=== PATIENT | male | born 1930 | race Caucasian/White ===

== ENCOUNTER → 2016-11-14 | Day surgery (SDC) | payer MEDICARE ==
[~2016-11-14] VITALS: Ht 180.3 cm; Wt 91.2 kg
[~2016-11-14] MED LIST: *LABETALOL HCL 100 MG/20 ML VIAL PERIprocedural Use ONLY ONE; ACET1CAP18 PO; ACETAMINOPHEN 1000 MG/100 ML VIAL IV SCH; AMLO2.5T PO; ASPI1TAB69 PO; BUPIVACAINE/EPINEPHRINE 0.5% PF 30 ML VIAL INFIL ONE; COUM2TAB PO; COUM3TAB PO; COUM4TAB PO; DEXAMETHASONE SOD PHOS 4 MG/ML VIAL ONE; DO NOT ADM ANY ANTICOAGULANT DRUGS XX PRN; FINA5TAB2 PO; HYDROmorphone HCL PF 2 MG/ML VIAL ONE; INSULIN HUMAN REGULAR 1,000 UNITS/10 ML VIAL SQ PRN; LACTATED RINGER'S 1000 ML IV SCH; LISI-515 PO; MEDI220T PO; METO25TA3 PO; METOPROLOL TARTRATE 25 MG TAB PO PRN; MIDAZOLAM HCL 2 MG/2 ML VIAL ONE; MORPHINE SULFATE 4 MG/ML INJ IV PRN; MULTTAB67 PO; NEOSTIGMINE 3 MG/3 ML SYR IV ONE; OMEP20TA PO; ONDANSETRON HCL 4 MG/2 ML VIAL IV PRN; ONDANSETRON HCL 4 MG/2 ML VIAL IV PUSH SCH; ONDANSETRON HCL 4 MG/2 ML VIAL ONE; OSTETAB7 PO; PRAV40TA PO; PRAV40TA2 PO; PROPOFOL 200 MG/20 ML AMP IV ONE; SODIUM CHLORID 0.9% 500 ML IV SCH; SODIUM CHLORIDE 5 ML FLUSH BID IVF SCH; SODIUM CHLORIDE 5 ML FLUSH PRN IVF; VANCOMYCIN 1,000 MG/NS 250ML (for <70 kg) IV SCH; ZINC50TA2 PO; ePHEDrine/NS 50 MG/5 ML SYR IV ONE; fentaNYL CITRATE 250 MCG/5 ML AMP ONE; oxyCODONE/ACETAMINOPHEN 5 MG/325 MG TAB PO PRN
[2016-11-14 09:09] VITALS: BP 157/114; PULSE 106; RESP 16; TEMP 97.9; O2SAT 99
[2016-11-14 10:20] LABS: INTERNATIONAL NORMALIZED RATIO 1.1 RATIO; PROTHROMBIN TIME - PATIENT 12.7 SEC (9.8-11.6)
[2016-11-14] MEDS: metroNIDAZOLE 500 MG INJ 100 ML IV SCH ×2 (11:23→11:25)
[2016-11-14 15:45] VITALS: BP 126/94; PULSE 100; RESP 17; TEMP 97.4; O2SAT 96
--- NOTE | 2016-11-22 07:51 | MP ---
cc: MAGNO KELLEY DATE OF 1930 DATE OF OPERATION 11/14/2016 PREOPERATIVE DIAGNOSIS Left inguinal hernia. POSTOPERATIVE DIAGNOSIS Left inguinal hernia. PROCEDURE Laparoscopic repair of left inguinal hernia with 12 x 15 UltraPro mesh. TEPP repair SURGEON Magno Kelley MD ANESTHESIA General endotracheal anesthesia. ESTIMATED BLOOD LOSS Scant. FINDINGS Indirect inguinal hernia. SPECIMENS None. COMPLICATIONS None. OPERATION The patient was brought to the operating room and placed on operating table in supine position, bilateral sequential inflation device placed on lower extremities, general anesthesia instituted, Rubio catheter placed, antibiotics initiated. The abdomen was prepped and draped sterilely, the infraumbilical region anesthetized with 0.25% Marcaine with epinephrine. A skin incision was made extending to the left of the umbilicus. The subcutaneous tissue was dissected down to the anterior rectus sheath. The anterior rectus sheath was incised. The rectus muscle was retracted laterally. The preperitoneal space was dissected first with blunt finger dissection followed by balloon dissection. The self-retaining balloon trocar was then placed. CO2 was insufflated into the preperitoneal space to a pressure of 12 mmHg. Two 5-mm ports were placed in the midline infraumbilically. Attention was then focused on the direct space. This was dissected, preperitoneal fat was dissected out of the direct space. The pubic tubercle was dissected as well as Steve's ligament. The indirect hernia sac was dissected off of the spermatic cord down into the preperitoneal space. The space was dissected further laterally to the psoas muscle. A 15 x 15 piece of UltraPro mesh was opened on the back table and cut down to 12 x 15. It was then opened into the preperitoneal space. It was then deployed to cover the entire myopectineal orifice. This was covering the direct space, indirect as well as femoral space. It was secured to Steve's ligament with SecureStrap. It was also secured to the rectus muscle with SecureStrap. CO2 was then released from the preperitoneal space. Marcaine was infiltrated into the preperitoneal space for postop analgesia. The trocars were removed. The anterior rectus sheath was approximated with 0 Vicryl and skin incision was approximated with 4-0 Monocryl. The testicle was withdrawn into the scrotum at the end of the procedure. The abdomen was then cleaned and sterile dressings placed. The patient was awakened and taken to the recovery room. Magno Kelley MD JS/SSB /7:59 AM /7:43 AM RIK
== END | disposition home or self-care (01) ==
LOC: HSDC 06:51
PROVIDERS: ATTEND Surgery
DX: K40.90 Unilateral inguinal hernia, without obstruction or gangrene, not specified as recurrent (principal); I48.92 Unspecified atrial flutter
CPT/HCPCS: 00840; 49650; 85610; C1727; C1781; J0131; J1100; J2250; J2405; J2710; J3010; J3370; J7050; J7120; J1170

== ENCOUNTER 2017-06-26 13:23 | Observation (INO) | payer MEDICARE ==
[~2017-06-26] VITALS: Ht 182.9 cm; Wt 83.0 kg
[~2017-06-26 13:23] MED LIST changes: -*LABETALOL HCL 100 MG/20 ML VIAL PERIprocedural Use ONLY ONE; -ACETAMINOPHEN 1000 MG/100 ML VIAL IV SCH; -AMLO2.5T PO; -ASPI1TAB69 PO; -BUPIVACAINE/EPINEPHRINE 0.5% PF 30 ML VIAL INFIL ONE; -COUM2TAB PO; -DEXAMETHASONE SOD PHOS 4 MG/ML VIAL ONE; -DO NOT ADM ANY ANTICOAGULANT DRUGS XX PRN; -HYDROmorphone HCL PF 2 MG/ML VIAL ONE; -INSULIN HUMAN REGULAR 1,000 UNITS/10 ML VIAL SQ PRN; -LACTATED RINGER'S 1000 ML IV SCH; -MEDI220T PO; -METOPROLOL TARTRATE 25 MG TAB PO PRN; -MIDAZOLAM HCL 2 MG/2 ML VIAL ONE; -MORPHINE SULFATE 4 MG/ML INJ IV PRN; -MULTTAB67 PO; -NEOSTIGMINE 3 MG/3 ML SYR IV ONE; -ONDANSETRON HCL 4 MG/2 ML VIAL IV PRN; -ONDANSETRON HCL 4 MG/2 ML VIAL IV PUSH SCH; -ONDANSETRON HCL 4 MG/2 ML VIAL ONE; -PRAV40TA PO; -PROPOFOL 200 MG/20 ML AMP IV ONE; -SODIUM CHLORID 0.9% 500 ML IV SCH; -SODIUM CHLORIDE 5 ML FLUSH BID IVF SCH; -SODIUM CHLORIDE 5 ML FLUSH PRN IVF; -VANCOMYCIN 1,000 MG/NS 250ML (for <70 kg) IV SCH; -ZINC50TA2 PO; -ePHEDrine/NS 50 MG/5 ML SYR IV ONE; -fentaNYL CITRATE 250 MCG/5 ML AMP ONE; -oxyCODONE/ACETAMINOPHEN 5 MG/325 MG TAB PO PRN
[2017-06-26 13:25] VITALS: BP 127/92; PULSE 128; RESP 24; TEMP 97.8; O2SAT 98
[2017-06-26 13:40] VITALS: O2SAT 100
[2017-06-26] MEDS ORDERED: CITR500T PO (13:44)
[2017-06-26] MEDS ORDERED: OSTEO BI FLEX PO (13:44)
[2017-06-26] MEDS ORDERED: METOPROLOL TARTRATE 25 MG TAB PO ONE ×2 (14:15→17:00)
[2017-06-26 14:26] LABS: AUTOMATED NEUTROPHIL # 5.3 TH/MM3 (1.8-7.7); BASOPHIL % 0.3 % (0.0-2.0); EOSINOPHIL # 0.1 TH/MM3 (0-0.4); HEMATOCRIT 41.9 % (39.0-51.0); HEMO FLAGS DIFF FINAL; LYMPH % 12.1 % (9.0-44.0); LYMPHOCYTE # 0.9 TH/MM3 (1.0-4.8); MEAN CELL VOLUME 93.5 FL (80.0-100.0); MEAN CORPUSCULAR HEMOGLOBIN 30.9 PG (27.0-34.0); MEAN CORPUSCULAR HGB CONC 33.1 % (32.0-36.0); MONO % 15.8 % (0.0-8.0); NEUT % 70.8 % (16.0-70.0); PLATELET COUNT 119 TH/MM3 (150-450); RED BLOOD COUNT 4.49 MIL/MM3 (4.50-5.90); RED CELL DISTRIBUTION WIDTH 13.6 % (11.6-17.2); WHITE BLOOD COUNT 7.5 TH/MM3 (4.0-11.0)
[2017-06-26 14:30] VITALS: BP 122/88; PULSE 113; RESP 16; O2SAT 98
--- NOTE | 2017-06-26 14:31 | RADRPT ---
EXAM DATE/TIME: 06/26/2017 13:45 [facility] COMPARISON: No previous studies available for comparison. INDICATIONS : Fever. MEDICAL HISTORY : None. SURGICAL HISTORY : Clavicle. ENCOUNTER: Initial ACUITY: 1 day PAIN SCORE: 0/10 LOCATION: Bilateral chest FINDINGS: A single view of the chest demonstrates the lungs to be symmetrically aerated without evidence of mas s, infiltrate or effusion. Minimal atelectatic changes above the left hemidiaphragm The cardiomedias tinal contours are unremarkable. Osseous structures are intact. Small cerclage wire overlies the lef t clavicle. CONCLUSION: No acute cardiopulmonary process. Dustin Mcgowan MD on June 26, 2017 at 14:14 Board Certified Radiologist. This report was verified electronically.
[2017-06-26 14:36] LABS: APTT (PATIENT) 45.6 SEC (24.3-30.1); INTERNATIONAL NORMALIZED RATIO 3.4 RATIO; PROTHROMBIN TIME - PATIENT 39.7 SEC (9.8-11.6)
--- NOTE | 2017-06-26 14:36 | PD ---
HPI Chief Complaint: Abnormal Results Time Seen by Provider: 13:34 Travel History International Travel<30 days: No Contact w/Intl Traveler<30days: No Traveled to known affect area: No History of Present Illness HPI 86-year-old male that presents to the ED for evaluation of abnormal EKG. Patient states that yesterday he started having cold-like symptoms and today per he will not get up from bed which is unusual for him. Patient reports that he saw his doctor Dr. Ortiz who evaluated him in the and EKG and show tachycardia. He was told to come here for evaluation and possible admission. Per patient he does have a history of atrial fibrillation and takes metoprolol as well as Coumadin. Per patient he did miss his metoprolol this morning as he did not eat anything and was not feeling well. He states that he has no chest pain or shortness of breath. No abdominal pain. No nausea or vomiting. Per patient he just feels weak and congested. Mild cough and sore throat. No sick contacts at home. States that he is allergic to penicillin. He denies any headache. No blurry vision or double vision. No recent travel. PFSH Past Medical History Hx Anticoagulant Therapy: Yes (warfarin) Blood Disorders: No Cancer: No Cardiovascular Problems: Yes (AFIB) High Cholesterol: Yes Diabetes: No Diminished Hearing: No Endocrine: No Gastrointestinal Disorders: Yes (reflux, POLYPS OF LG INTESTINE, BARRETTE'S ESOPHAGUS) GERD: Yes Genitourinary: Yes (prostatectomy 3 times) Hepatitis: No Hiatal Hernia: Yes Hypertension: Yes Immune Disorder: No Musculoskeletal: Yes (arthritis, LUMBAR DISC DEGENERATION) Neurologic: No Psychiatric: No Reproductive: No Respiratory: No Thyroid Disease: No Past Surgical History Abdominal Surgery: Yes (LAP CHOLY) AICD: No Body Medical Devices: N/A Cardiac Surgery: No Ear Surgery: No Endocrine Surgery: No Eye Surgery: Yes (BILAT. CATARACTS REMOVED) Genitourinary Surgery: Yes (PROSTATECTOMY X 3) Gynecologic Surgery: No Joint Replacement: No Oral Surgery: Yes (TONSILLECTOMY) Pacemaker: No Thoracic Surgery: No Tonsillectomy: Yes Other Surgery: Yes Social History Alcohol Use: Yes (SOCIAL) Tobacco Use: No Substance Use: No Allergies-Medications (Allergen,Severity, Reaction): Coded Allergies: penicillin G (Unverified Allergy, Intermediate, CANT BREATHE, 06/04/17) Reported Meds & Prescriptions Reported Meds & Active Scripts Active Reported Citrucel (Methylcellulose) 500 Mg Tab 2 Tab PO DAILY [[id number]] 1 Tab PO DAILY Coumadin (Warfarin) 3 Mg Tab 3 Mg PO TUTHSASU Pravastatin 40 Mg Tab 40 Mg PO DAILY Metoprolol Tartrate 25 Mg Tab 25 Mg PO BID Finasteride 5 Mg Tab 5 Mg PO DAILY Do not crush. Review of Systems Except as stated in HPI: all other systems reviewed are Neg Physical Exam Narrative GENERAL: SKIN: Warm and dry. HEAD: Atraumatic. Normocephalic. EYES: Pupils equal and round. No scleral icterus. No injection or drainage. ENT: No nasal bleeding or discharge. Mucous membranes pink and moist. Tongue is midline. No uvula deviation. Throat slightly erythematous but no tonsillar inflammation or exudates noted. Nostrils are patent with some congestion noted. No sinus tenderness. No meningeal signs noted. No lymphadenopathy. NECK: Trachea midline. No JVD. CARDIOVASCULAR: Irregular rate and rhythm. No murmurs, S3, S4. RESPIRATORY: No accessory muscle use. Clear to auscultation. Breath sounds equal bilaterally. GASTROINTESTINAL: Abdomen soft, non-tender, nondistended. Hepatic and splenic margins not palpable. MUSCULOSKELETAL: Extremities without clubbing, cyanosis, or edema. No obvious deformities. Full range of motion of the upper and lower extremities bilaterally. 2+ pulses bilaterally. NEUROLOGICAL: Awake and alert. No obvious cranial nerve deficits. Motor grossly within normal limits. Five out of 5 muscle strength in the arms and legs. Normal speech. PSYCHIATRIC: Appropriate mood and affect; insight and judgment normal. Data Data Last Documented VS Vital Signs Date Time Temp Pulse Resp B/P (MAP) Pulse Ox O2 Delivery O2 Flow Rate FiO2 06/26/17 15:51 98 16 124/85 (98) 98 Room Air 06/26/17 13:25 97.8 Orders Orders Electrocardiogram (06/26/17 13:42) Complete Blood Count With Diff (06/26/17 13:42) Comprehensive Metabolic Panel (06/26/17 13:42) Ckmb (Isoenzyme) Profile (06/26/17 13:42) Troponin I (06/26/17 13:42) B-Type Natriuretic Peptide (06/26/17 13:42) Prothrombin Time / Inr (Pt) (06/26/17 13:42) Act Partial Throm Time (Ptt) (06/26/17 13:42) Blood Culture (06/26/17 13:42) Lipase (06/26/17 13:42) Urinalysis - C+S If Indicated (06/26/17 13:42) Magnesium (Mg) (06/26/17 13:42) Thyroid Stimulating Hormone (06/26/17 13:42) Group A Rapid Strep Screen (06/26/17 13:42) Influenzae A/B Antigen (06/26/17 13:42) Chest, Single Ap (06/26/17 13:42) Iv Access Insert/Monitor (06/26/17 13:42) Ecg Monitoring (06/26/17 13:42) Oximetry (06/26/17 13:42) Metoprolol Tartrate (Lopressor) (06/26/17 14:15) Strep Culture (Group A) (06/26/17 13:50) Diltiazem Inj (Cardizem Inj) (06/26/17 15:00) Place In Observation (06/26/17 ) Activity Oob With Assistance (06/26/17 16:21) Vital Signs (Adult) ANJALI.Q4H (06/26/17 16:21) Superintendent Pier / Telemetry ANJALI.Q8H (06/26/17 16:21) Consult Pt Eval & Treat (06/26/17 16:21) Prothrombin Time / Inr (Pt) (06/27/17 06:00) Basic Metabolic Panel (Bmp) (06/27/17 06:00) Complete Blood Count With Diff (06/27/17 06:00) Admit Order (Ed Use Only) (06/26/17 16:26) Metoprolol Tartrate (Lopressor) (06/26/17 21:00) Pravastatin (Pravachol) (06/27/17 09:00) Labs Laboratory Tests Test 06/26/17 13:55 06/26/17 15:45 White Blood Count 7.5 TH/MM3 Red Blood Count 4.49 MIL/MM3 Hemoglobin 13.9 GM/DL Hematocrit 41.9 % Mean Corpuscular Volume 93.5 FL Mean Corpuscular Hemoglobin 30.9 PG Mean Corpuscular Hemoglobin Concent 33.1 % Red Cell Distribution Width 13.6 % Platelet Count 119 TH/MM3 Mean Platelet Volume 8.9 FL Neutrophils (%) (Auto) 70.8 % Lymphocytes (%) (Auto) 12.1 % Monocytes (%) (Auto) 15.8 % Eosinophils (%) (Auto) 1.0 % Basophils (%) (Auto) 0.3 % Neutrophils # (Auto) 5.3 TH/MM3 Lymphocytes # (Auto) 0.9 TH/MM3 Monocytes # (Auto) 1.2 TH/MM3 Eosinophils # (Auto) 0.1 TH/MM3 Basophils # (Auto) 0.0 TH/MM3 CBC Comment DIFF FINAL Differential Comment Prothrombin Time 39.7 SEC Prothromb Time International Ratio 3.4 RATIO Activated Partial Thromboplast Time 45.6 SEC Blood Urea Nitrogen 18 MG/DL Creatinine 1.34 MG/DL Random Glucose 77 MG/DL Total Protein 6.5 GM/DL Albumin 3.4 GM/DL Calcium Level 8.3 MG/DL Magnesium Level 2.0 MG/DL Alkaline Phosphatase 76 U/L Aspartate Amino Transf (AST/SGOT) 13 U/L Alanine Aminotransferase (ALT/SGPT) 15 U/L Total Bilirubin 1.0 MG/DL Sodium Level 143 MEQ/L Potassium Level 4.1 MEQ/L Chloride Level 107 MEQ/L Carbon Dioxide Level 28.4 MEQ/L Anion Gap 8 MEQ/L Estimat Glomerular Filtration Rate 50 ML/MIN Total Creatine Kinase 49 U/L Troponin I LESS THAN 0.02 NG/ML B-Type Natriuretic Peptide 331 PG/ML Lipase 126 U/L Thyroid Stimulating Hormone 3rd Gen 0.665 uIU/ML Urine Color YELLOW Urine Turbidity CLEAR Urine pH 6.0 Urine Specific [place] 1.025 Urine Protein TRACE mg/dL Urine Glucose (UA) NEG mg/dL Urine Ketones 10 mg/dL Urine Occult Blood TRACE Urine Nitrite NEG Urine Bilirubin NEG Urine Urobilinogen 2.0 MG/DL Urine Leukocyte Esterase NEG Urine RBC 1 /hpf Urine WBC 2 /hpf Urine Squamous Epithelial Cells <1 /hpf Urine Hyaline Casts 3 /lpf Microscopic Urinalysis Comment CULT NOT INDICATED MDM Medical Decision Making Medical Screen Exam Complete: Yes Emergency Medical Condition: Yes Medical Record Reviewed: Yes Interpretation(s) EKG show atrial fibrillation with RVR. Read by me and attending. CBC & BMP Diagram 06/26/17 13:55 Total Protein 6.5, Albumin 3.4, Calcium Level 8.3 L, Magnesium Level 2.0, Alkaline Phosphatase 76, Aspartate Amino Transf (AST/SGOT) 13 L, Alanine Aminotransferase (ALT/SGPT) 15, Total Bilirubin 1.0 troponin and CKMB negative Last Impressions Chest X-Ray 06/26/17 1342 Signed Impressions: Service Date/Time: Monday, June 26, 2017 13:45 - CONCLUSION: No acute cardiopulmonary process. Dustin Mcgowan MD Differential Diagnosis Atrial flutter fib versus atrial flutter versus tachycardia versus URI versus influenza versus strep throat versus pneumonia Narrative Course 86-year-old male that presents to the ED for evaluation of abnormal EKG. Patient was properly examined and was found to have signs and symptoms consistent with A. fib and RVR as well as likely cold-like symptoms. Labs and imaging were ordered. EKG here shows atrial fibrillation with a ventricular rate of 112. Patient did miss his metoprolol dose. Case was discussed in my attending who recommends starting patient on metoprolol and revaluate. Patient was given dose of metoprolol here. Labs and imaging came back essentially negative. Patient does have A. fib still and his heart rate was between 90 - 120. My attending Dr. Dove evaluated the patient with me and recommend started on diltiazem. Diltiazem bolus was given and patient still having similar issues. My attending recommends admission. My attending spoke with for help her doctor for admission. Please refer to her note. Diagnosis Primary Impression: Atrial fibrillation with tachycardic ventricular rate Admitting Information Admitting Physician Requests: Liam Conner Jun 26, 2017 14:36
[2017-06-26 14:47] LABS: ALT (GPT) 15 U/L (12-78); ANION GAP 8 MEQ/L (5-15); AST (GOT) 13 U/L (15-37); BICARBONATE 28.4 MEQ/L (21.0-32.0); BLOOD UREA NITROGEN 18 MG/DL (7-18); CHLORIDE 107 MEQ/L (98-107); GLOMERULAR FILTRATION RATE 50 ML/MIN (>89); POTASSIUM 4.1 MEQ/L (3.5-5.1); SODIUM (NA) 143 MEQ/L (136-145)
[2017-06-26 14:57] LABS: ALKALINE PHOSPHATASE 76 U/L (45-117)
[2017-06-26] MEDS ORDERED: DILTIAZEM HCL 25 MG/5 ML VIAL IV ONE (15:00)
[2017-06-26 15:01] LABS: CREATINE KINASE 49 U/L (39-308)
[2017-06-26 15:51] VITALS: BP 124/85; PULSE 98; RESP 16; O2SAT 98
[2017-06-26 16:05] LABS: BLOOD, URINE TRACE (NEG); COMMENT (UR) CULT NOT INDICATED; CULTURE IF INDICATED CULT NOT INDICATED; GLUCOSE,URINE NEG (NEG); HYALINE CAST, URINE 3 /lpf (RARE); KETONE, URINE 10 mg/dL (NEG); NITRITE,URINE NEG (NEG); SQUAMOUS EPITHELIAL CELL URINE <1 /hpf (0-5); URINE COLOR YELLOW (YELLW/STRAW)
--- NOTE | 2017-06-26 16:09 | PD ---
Physical Exam Narrative I, Dr. Dove, have reviewed the advance practice practitioner's documentation and am in agreement, met with the patient face to face, made the diagnosis, and the medical decision making was done by me. *My assessment and Findings: Afib RVR vs. UTI vs. electrolyte abnormality vs. dehydration 86yo M with history of afib on metoprolol and coumadin sent here from Dr. Ortiz's office for afib RVR. Pt had rate of 125 there. Repeat EKG here showed Afib at 112bpm. LAD. Pt did not take his metoprolol this morning because he was not feeling well so gave him his metoprolol 25mg PO. states he had generalized weakness today and looked lethargic to her. Pt has no specific complaints except generalized weakness. No focal neurologic deficits. HR still elevated after metoprolol so gave 10mg IV cardizem. HR improved but still fluctuates consistently from 90s to 118bpm. Labs reviewed, no leukocytosis. BNP mildly elevated at 331. Troponin negative. Creatinine mildly elevated at 1.34. TSH normal. INR 3.4. UA negative. CXR negative. Discussed with Dr. Lisa and accepted to his service. Data Data Last Documented VS Vital Signs Date Time Temp Pulse Resp B/P (MAP) Pulse Ox O2 Delivery O2 Flow Rate FiO2 06/26/17 15:51 98 16 124/85 (98) 98 Room Air 06/26/17 13:25 97.8 Orders Orders Electrocardiogram (06/26/17 13:42) Complete Blood Count With Diff (06/26/17 13:42) Comprehensive Metabolic Panel (06/26/17 13:42) Ckmb (Isoenzyme) Profile (06/26/17 13:42) Troponin I (06/26/17 13:42) B-Type Natriuretic Peptide (06/26/17 13:42) Prothrombin Time / Inr (Pt) (06/26/17 13:42) Act Partial Throm Time (Ptt) (06/26/17 13:42) Blood Culture (06/26/17 13:42) Lipase (06/26/17 13:42) Urinalysis - C+S If Indicated (06/26/17 13:42) Magnesium (Mg) (06/26/17 13:42) Thyroid Stimulating Hormone (06/26/17 13:42) Group A Rapid Strep Screen (06/26/17 13:42) Influenzae A/B Antigen (06/26/17 13:42) Chest, Single Ap (06/26/17 13:42) Iv Access Insert/Monitor (06/26/17 13:42) Ecg Monitoring (06/26/17 13:42) Oximetry (06/26/17 13:42) Metoprolol Tartrate (Lopressor) (06/26/17 14:15) Strep Culture (Group A) (06/26/17 13:50) Diltiazem Inj (Cardizem Inj) (06/26/17 15:00) Place In Observation (06/26/17 ) Activity Oob With Assistance (06/26/17 16:21) Vital Signs (Adult) ANJALI.Q4H (06/26/17 16:21) [employer] Floor Walker / Telemetry ANJALI.Q8H (06/26/17 16:21) Consult Pt Eval & Treat (06/26/17 16:21) Prothrombin Time / Inr (Pt) (06/27/17 06:00) Basic Metabolic Panel (Bmp) (06/27/17 06:00) Complete Blood Count With Diff (06/27/17 06:00) Admit Order (Ed Use Only) (06/26/17 16:26) Labs Laboratory Tests Test 06/26/17 13:55 06/26/17 15:45 White Blood Count 7.5 TH/MM3 Red Blood Count 4.49 MIL/MM3 Hemoglobin 13.9 GM/DL Hematocrit 41.9 % Mean Corpuscular Volume 93.5 FL Mean Corpuscular Hemoglobin 30.9 PG Mean Corpuscular Hemoglobin Concent 33.1 % Red Cell Distribution Width 13.6 % Platelet Count 119 TH/MM3 Mean Platelet Volume 8.9 FL Neutrophils (%) (Auto) 70.8 % Lymphocytes (%) (Auto) 12.1 % Monocytes (%) (Auto) 15.8 % Eosinophils (%) (Auto) 1.0 % Basophils (%) (Auto) 0.3 % Neutrophils # (Auto) 5.3 TH/MM3 Lymphocytes # (Auto) 0.9 TH/MM3 Monocytes # (Auto) 1.2 TH/MM3 Eosinophils # (Auto) 0.1 TH/MM3 Basophils # (Auto) 0.0 TH/MM3 CBC Comment DIFF FINAL Differential Comment Prothrombin Time 39.7 SEC Prothromb Time International Ratio 3.4 RATIO Activated Partial Thromboplast Time 45.6 SEC Blood Urea Nitrogen 18 MG/DL Creatinine 1.34 MG/DL Random Glucose 77 MG/DL Total Protein 6.5 GM/DL Albumin 3.4 GM/DL Calcium Level 8.3 MG/DL Magnesium Level 2.0 MG/DL Alkaline Phosphatase 76 U/L Aspartate Amino Transf (AST/SGOT) 13 U/L Alanine Aminotransferase (ALT/SGPT) 15 U/L Total Bilirubin 1.0 MG/DL Sodium Level 143 MEQ/L Potassium Level 4.1 MEQ/L Chloride Level 107 MEQ/L Carbon Dioxide Level 28.4 MEQ/L Anion Gap 8 MEQ/L Estimat Glomerular Filtration Rate 50 ML/MIN Total Creatine Kinase 49 U/L Troponin I LESS THAN 0.02 NG/ML B-Type Natriuretic Peptide 331 PG/ML Lipase 126 U/L Thyroid Stimulating Hormone 3rd Gen 0.665 uIU/ML Urine Color YELLOW Urine Turbidity CLEAR Urine pH 6.0 Urine Specific [place] 1.025 Urine Protein TRACE mg/dL Urine Glucose (UA) NEG mg/dL Urine Ketones 10 mg/dL Urine Occult Blood TRACE Urine Nitrite NEG Urine Bilirubin NEG Urine Urobilinogen 2.0 MG/DL Urine Leukocyte Esterase NEG Urine RBC 1 /hpf Urine WBC 2 /hpf Urine Squamous Epithelial Cells <1 /hpf Urine Hyaline Casts 3 /lpf Microscopic Urinalysis Comment CULT NOT INDICATED MDM Supervised Visit with ANNY: Yes Interpretation(s) EKG: Afib 112bpm. LAD. Diagnosis Primary Impression: Atrial fibrillation with tachycardic ventricular rate Admitting Information Admitting Physician Requests: Sarah Alcaraz DO Jun 26, 2017 16:08
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
[2017-06-26] MEDS ORDERED: ACETAMINOPHEN 325 MG TAB PO PRN (17:00)
[2017-06-26] MEDS ORDERED: ONDANSETRON HCL 4 MG/2 ML VIAL IV PRN (17:00)
[2017-06-26] MEDS ORDERED: SODIUM CHLORID 0.9% 500 ML INJ 500 ML IV SCH (17:00)
[2017-06-26 20:22] VITALS: BP 110/63; PULSE 123; RESP 19; TEMP 97.9; O2SAT 98
[2017-06-26 20:30] VITALS: PULSE 122
[2017-06-26 20:44] LABS: CREATINE KINASE 47 U/L (39-308)
[2017-06-26] MEDS ORDERED: METOPROLOL TARTRATE 25 MG TAB PO SCH ×3 (21:00)
[2017-06-27] VITALS (7 sets, daily range): BP systolic 111–116; BP diastolic 64–90; PULSE 92–126; RESP 17–18; TEMP 97.5–98; O2SAT 92–97
[2017-06-27 08:22] LABS: AUTOMATED NEUTROPHIL # 4.9 TH/MM3 (1.8-7.7); BASOPHIL % 0.2 % (0.0-2.0); EOSINOPHIL # 0.1 TH/MM3 (0-0.4); EOSINOPHIL % 1.1 % (0.0-4.0); HEMATOCRIT 41.4 % (39.0-51.0); HEMO FLAGS DIFF FINAL; LYMPH % 11.7 % (9.0-44.0); LYMPHOCYTE # 0.8 TH/MM3 (1.0-4.8); MEAN CELL VOLUME 92.9 FL (80.0-100.0); MEAN CORPUSCULAR HEMOGLOBIN 31.7 PG (27.0-34.0); MEAN CORPUSCULAR HGB CONC 34.2 % (32.0-36.0); MONO % 13.6 % (0.0-8.0); NEUT % 73.4 % (16.0-70.0); PLATELET COUNT 110 TH/MM3 (150-450); RED BLOOD COUNT 4.46 MIL/MM3 (4.50-5.90); RED CELL DISTRIBUTION WIDTH 13.7 % (11.6-17.2); WHITE BLOOD COUNT 6.6 TH/MM3 (4.0-11.0)
[2017-06-27 08:30] LABS: INTERNATIONAL NORMALIZED RATIO 2.5 RATIO; PROTHROMBIN TIME - PATIENT 29.1 SEC (9.8-11.6)
[2017-06-27 08:46] LABS: BICARBONATE 28.6 MEQ/L (21.0-32.0)
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
[2017-06-27] MEDS ORDERED: PRAVASTATIN SOD 40 MG TAB PO SCH (09:00)
[2017-06-27] MEDS ORDERED: METOPROLOL TARTRATE 50 MG TAB PO SCH (09:00)
[2017-06-27] MEDS ORDERED: FINASTERIDE 5 MG TAB PO SCH (09:00)
--- NOTE | 2017-06-27 12:50 | EKG ---
Date Performed: 06/26/2017 Time Performed: 20:30:53 PTAGE: 86 years EKG: ECTOPIC ATRIAL TACHYCARDIA INTRAVENTRICULAR CONDUCTION DELAY INFERIOR MYOCARDIAL INFARCTION ACUTE [place] PREVIOUS TRACING : 06/26/2017 13.38 DOCTOR: Jass Mott Interpretating Date/Time 06/27/2017 12:45:39
--- NOTE | 2017-06-27 12:57 | EKG ---
Date Performed: 06/26/2017 Time Performed: 13:38:15 PTAGE: 86 years EKG: ATRIAL FLUTTER/TACHYCARDIA WITH RAPID VENTRICULAR RESPONSE LEFT ANTERIOR FASCICULAR BLOCK A BNORMAL ECG INTERPRETATION BASED ON A DEFAULT AGE OF 40 YEARS PREVIOUS TRACING : 09/24/2012 14.25 DOCTOR: Jass Mott Interpretating Date/Time 06/27/2017 12:50:26
[2017-06-27] MEDS ORDERED: METO25TA3 PO (13:58)
--- NOTE | 2017-06-27 14:02 | HHI.DCPOC ---
Discharge Care Plan Diagnosis: (1) Hyperlipidemia (2) GERD (gastroesophageal reflux disease) (3) HTN (hypertension) (4) Atrial fibrillation with tachycardic ventricular rate Goals to Promote Your Health MEDICATION CHANGES: - Metoprolol increased to 50mg twice daily - Monitor blood pressure and heart rate with these new medication changes - Call your PCP should your heart rate decrease below 60 and sustaining there or go above 110 and sustain this rate. - If your systolic BP (top number) is below 100, you should decrease your Metoprolol dose back to 25 for that dose. - Followup with your PCP in 1 week, call for an appt. - Resume your Coumadin dose tomorrow, 06/28 Directions to Meet Your Goals Take your medications as prescribed Follow your dietary instruction Follow activity as directed Keep your appointments as scheduled Take your immunizations and boosters as scheduled If your symptoms worsen call your PCP, if no PCP go to Urgent Care Center or Emergency Room Smoking is Dangerous to Your Health. Avoid second hand smoke Call the 24-hour hour crisis hotline for domestic abuse at Margaret James Jun 27, 2017 14:02
== END 2017-06-27 16:48 | disposition home or self-care (01) ==
LOC: NEPE 13:23 → NEDA 16:28 → NEPHCDU 17:49
PROVIDERS: ADMIT Hospitalist; ATTEND Hospitalist
DX: I48.91 Unspecified atrial fibrillation (principal); I48.92 Unspecified atrial flutter; R94.31 Abnormal electrocardiogram [ECG] [EKG]; I10 Essential (primary) hypertension; R79.1 Abnormal coagulation profile; K21.9 Gastro-esophageal reflux disease without esophagitis; E78.5 Hyperlipidemia, unspecified; Z79.01 Long term (current) use of anticoagulants
CPT/HCPCS: 71010; 80048; 80053; 81001; 82550; 83690; 83735; 83880; 84443; 84484; 85025; 85610; 85730; 87040; 87081; 87804; 87880; 93005; 96360; 97161; 99285; G0378; G8987; G8988; J7040